=== PATIENT | male | born 1970 | race Caucasian/White ===

== ENCOUNTER 2020-05-09 14:09 | Emergency (ER) | payer OTHER ==
[~2020-05-09] VITALS: Ht 177.8 cm; Wt 79.6 kg
[2020-05-09 14:18] VITALS: BP 126/91
--- NOTE | 2020-05-09 14:26 | NUR ---
PT IS A 50M BIB EMS AFTER HE WAS FOUND INTOXICATED SLEEPING ON THE STREET. HE EXPRESSES INTEREST IN DETOX SERVICES. HE SAYS HE NORMALY DRINKS A FIFTH OF VODKA EVERY DAY.STATES HE WAS KICKED OUT OF HIS MOMS HOUSE AND IS NOW HOMELESS. BP AND SP02 MONITORS IN PLACE. CALL LIGHT WITHIN REACH. PROVIDER AT BEDSIDE FOR EVAL.
--- NOTE | 2020-05-09 15:31 | NUR ---
pt continually up and out of the room. He walked to the restroom and to the nurses station requesting to go home. He was given water, soda, and snacks. D/C paperwork given and walked out with a steady gait.
== END 2020-05-09 15:34 | disposition home or self-care (01) ==
LOC: ED 15:28
DX: F10.220 Alcohol dependence with intoxication, uncomplicated (principal); F15.10 Other stimulant abuse, uncomplicated; F14.10 Cocaine abuse, uncomplicated; Y90.9 Presence of alcohol in blood, level not specified
CPT/HCPCS: 99283

== ENCOUNTER 2020-10-16 12:32 | Emergency (ER) | payer OTHER ==
[~2020-10-16] VITALS: Ht 182.9 cm; Wt 111.0 kg
[2020-10-16 12:33] VITALS: BP 140/90
[2020-10-16 13:00] LABS: BASOPHILS % (AUTO) 1 % (0-1); EOSINOPHILS % (AUTO) 1 % (1-7); LYMPHOCYTES % (AUTO) 14 % (22-44); MEAN CORPUSCULAR HGB CONC 32.7 g/dL (33.2-36.2); MEAN PLATELET VOLUME 7.6 fL (7.4-10.4); MONOCYTES % (AUTO) 7 % (2-9); NEUTROPHILS % (AUTO) 77 % (42-75); PLATELET COUNT 297 x10^3/uL (130-400); RED BLOOD COUNT 4.41 x10^6/uL (4.38-5.82); RED CELL DISTRIBUTION WIDTH 23.3 % (9.4-14.8)
[2020-10-16] MEDS ORDERED: LORazepam 2 MG/ML, 1ML IVPush PRN (13:00)
[2020-10-16] MEDS ORDERED: SODIUM CHLORIDE 0.9% 1,000ML IVBOLUS ONE (13:00)
[2020-10-16] MEDS ORDERED: THIAMINE 100MG TABLET PO ONE (13:00)
--- NOTE | 2020-10-16 13:00 | NUR ---
PT BIB EMS FOR ETOH AND METH USE. PT ERRATIC, PACING.
[2020-10-16 13:13] LABS: ALBUMIN 3.6 g/dL (3.4-5.0); ANION GAP 9 mmol/L (5-15); CHLORIDE 108 mmol/L (98-107)
[2020-10-16 13:18] LABS: ALANINE AMINOTRANSFERASE 40 U/L (12-78); ALKALINE PHOSPHATASE 194 U/L (45-117); BILIRUBIN,TOTAL 0.4 mg/dL (0.2-1.0); CALCIUM 8.4 mg/dL (8.5-10.1); CREATININE 1.35 mg/dL (0.7-1.3); TOTAL PROTEIN 8.1 g/dL (6.4-8.2)
[2020-10-16] MEDS ORDERED: LORazepam 2 MG/ML, 1ML ONE (13:42)
[2020-10-16] MEDS ORDERED: THIAMINE 100MG TABLET ONE (13:42)
--- NOTE | 2020-10-16 14:14 | NUR ---
PT SLEEPING, IVF
--- NOTE | 2020-10-16 15:00 | NUR ---
PT SLEEPING. RESP EVEN AND UNLABORED
--- NOTE | 2020-10-16 16:00 | NUR ---
PT SLEEPING, SIDE RAILS IN PLACE
--- NOTE | 2020-10-16 17:14 | NUR ---
Patient given discharge instructions and they have confirmed that they understand the instructions. Patient ambulatory with steady gait.
== END 2020-10-16 17:17 | disposition home or self-care (01) ==
LOC: ED 15:56
DX: F15.129 Other stimulant abuse with intoxication, unspecified (principal); F10.120 Alcohol abuse with intoxication, uncomplicated; R45.1 Restlessness and agitation; Y90.0 Blood alcohol level of less than 20 mg/100 ml
CPT/HCPCS: 36415; 80053; 80320; 83690; 85025; 96361; 96374; 99283; J2060; J7030; G0480